=== PATIENT | female | born 1980 | race Asian ===

== ENCOUNTER 2017-05-30 07:42 | Day surgery (SDC) | payer OTHER ==
[~2017-05-30] VITALS: Ht 165.1 cm; Wt 74.4 kg
[~2017-05-30 07:42] MED LIST: CLARITIN,ALAVAR10 MG PO; MIRENA1 EACH IY
[2017-05-30 08:20] LABS: BASOPHIL COUNT 0.1 K/uL (0-0.1); EOSINOPHIL (%) 10.1 % (0-5); EOSINOPHIL COUNT 0.6 K/uL (0-0.3); HEMATOCRIT 37.9 % (36.0-46.0); IMMATURE GRANULOCYTE (%) 0.2 % (0.0-0.7); INSTRUMENT ABS NEUTROPHIL CT 2.6 K/uL; LYMPHOCYTE COUNT 2.1 K/uL (1.0-2.8); MCH 28.5 PG (29.0-34.0); MCHC 33.5 G/DL (30.0-36.0); MCV 85.2 FL (83-99); MEAN PLAT.VOLUME 10.1 uM^3 (9.5-12.4); MONOCYTE (%) 7.5 % (3-12); MONOCYTE COUNT 0.4 K/uL (0-0.8); NEUTROPHIL (%) 44.8 % (45-76); NEUTROPHIL COUNT 2.6 K/uL (1.8-6.4); PLATELET COUNT 254 K/uL (156-360); RBC DIS.WIDTH-CV 13.2 % (11.8-14.6); RBC DIS.WIDTH-SD 40.3 % (39-53); RED BLOOD COUNT 4.45 M/uL (3.80-5.20); WHITE BLOOD COUNT 5.8 K/uL (4.1-10.2)
[2017-05-30 09:43] VITALS: BP 126/60
[2017-05-30 13:55] VITALS: BP 128/61
[2017-05-30 14:31] VITALS: BP 142/67
== END 2017-05-30 14:45 | disposition home or self-care (01) ==
LOC: SDC 07:42
PROVIDERS: Obstetrics & Gynecology
PROC: 0UL74DZ Occlusion of Bilateral Fallopian Tubes with Intraluminal Device, Percutaneous Endoscopic Approach (ICD-10-PCS; principal; 2017-05-30)
DX: Z30.2 Encounter for sterilization (principal)
CPT/HCPCS: 84702; 85025; J1050; J1100; J1170; J1885; J2250; J2405; J3010

== ENCOUNTER → 2017-08-29 | Outpatient (CLI) | payer OTHER | END | disposition home or self-care (01) | LOC: RAD 13:15 | PROC: BU18YZZ Fluoroscopy of Uterus and Fallopian Tubes using Other Contrast (ICD-10-PCS; principal; 2017-08-29) | PROC: 0UJ87ZZ Inspection of Fallopian Tube, Via Natural or Artificial Opening (ICD-10-PCS; principal; 2017-08-29) | DX: Z30.40 Encounter for surveillance of contraceptives, unspecified (principal); N97.1 Female infertility of tubal origin | CPT/HCPCS: 74740 ==

== ENCOUNTER 2018-02-27 00:22 | Emergency (ER) | payer OTHER ==
[~2018-02-27] VITALS: Ht 165.1 cm; Wt 78.7 kg
[2018-02-27 04:07] VITALS: BP 133/69
== END 2018-02-27 04:14 | disposition home or self-care (01) ==
LOC: EME 00:22
DX: N61.0 Mastitis without abscess (principal)
CPT/HCPCS: 99281; 99283

== ENCOUNTER 2018-03-03 12:06 | Emergency (ER) | payer OTHER ==
[~2018-03-03] VITALS: Ht 165.1 cm; Wt 77.1 kg
[2018-03-03 12:30] LABS: BASOPHIL (%) 0.7 % (0-1); BASOPHIL COUNT 0.1 K/uL (0-0.1); EOSINOPHIL (%) 5.6 % (0-5); EOSINOPHIL COUNT 0.4 K/uL (0-0.3); HEMOGLOBIN 13.7 G/DL (11.9-15.5); IMMATURE GRANULOCYTE (%) 0.3 % (0.0-0.7); LYMPHOCYTE (%) 35.8 % (15-42); LYMPHOCYTE COUNT 2.6 K/uL (1.0-2.8); MCH 27.6 PG (29.0-34.0); MCHC 32.6 G/DL (30.0-36.0); MCV 84.5 FL (83-99); MONOCYTE (%) 7.4 % (3-12); MONOCYTE COUNT 0.5 K/uL (0-0.8); NEUTROPHIL (%) 50.2 % (45-76); NEUTROPHIL COUNT 3.6 K/uL (1.8-6.4); PLATELET COUNT 324 K/uL (156-360); RBC DIS.WIDTH-CV 12.8 % (11.8-14.6); RBC DIS.WIDTH-SD 39.1 % (39-53); RED BLOOD COUNT 4.97 M/uL (3.80-5.20); WHITE BLOOD COUNT 7.3 K/uL (4.1-10.2)
[2018-03-03 12:37] LABS: CHLORIDE 106 mEq/L (99-109); POTASSIUM 4.1 mEq/L (3.7-5.4); SODIUM 135 mEq/L (136-147)
[2018-03-03 12:39] LABS: GLUCOSE 105 mg/dL (70-99)
[2018-03-03 12:43] LABS: CREATININE 0.7 mg/dL (0.6-1.3); GFR ESTIMATE (CALCULATED) > 59 mL/min/
[2018-03-03 12:44] LABS: UREA NITROGEN (BUN) 10 mg/dL (9-23)
[2018-03-03] MEDS ORDERED: DOXYCYCLINE MO100 MG PO (14:18)
[2018-03-03 14:46] VITALS: BP 133/64
== END 2018-03-03 14:45 | disposition home or self-care (01) ==
LOC: RME 12:06 → EME 12:06 → RME 14:45
DX: N61.0 Mastitis without abscess (principal); J45.909 Unspecified asthma, uncomplicated
CPT/HCPCS: 71046; 80048; 83605; 85025; 99281; 99284